=== PATIENT | male | born 1950 | race Two or more races ===

== ENCOUNTER 2023-07-10 12:49 | Inpatient (IN) | payer OTHER ==
[2023-07-10 15:31] LABS: BASO % 0.6 % (0-2.0); EOS % 2.7 % (0-4.5); HEMATOCRIT 34.6 % (35.4-49); HEMOGLOBIN 11.6 GM/dL (11.7-16.9); LYMPH % 14.7 % (8-40); MCH 29.2 pg (25.7-33.7); MCHC 33.4 g/dl (32.0-35.9); MEAN CELL VOLUME 87.3 fl (80-96); MEAN PLT VOLUME 8.4 fl (7.5-11.1); MONO % 5.9 % (3.8-10.2); NEUT % 76.1 % (42.8-82.8); PLATELET COUNT 279 10^3/uL (134-434); RBC 3.96 M/mm3 (4.00-5.60); RDW 14.9 % (11.9-15.9)
[2023-07-10 15:41] LABS: INR 1.01 (0.83-1.09); PROTHROMBIN TIME (PATIENT) 11.7 SEC (9.7-13.0)
[2023-07-10 15:44] LABS: ACTIVATED PTT 26.7 SECONDS (25.2-36.5)
[2023-07-10 16:01] LABS: POTASSIUM 5.2 mmol/L (3.5-5.1)
[2023-07-10 16:04] LABS: CALCIUM 9.8 mg/dL (8.5-10.1)
[2023-07-10 16:06] LABS: BLOOD UREA NITROGEN 31.8 mg/dL (7-18); MAGNESIUM 1.6 mg/dL (1.8-2.4)
[2023-07-10 16:09] LABS: BILIRUBIN,TOTAL 0.4 mg/dL (0.2-1); TOT PROT 8.1 g/dl (6.4-8.2)
[2023-07-10 16:16] LABS: LACTIC ACID 2.2 mmol/L (0.4-2.0)
[2023-07-10] MEDS: LACTATED RINGERS SOLUTION 1000 ML INFUS.BAG IV ONE (17:57)
[2023-07-10 18:35] LABS: PH,URINE 5.5 (5.0-8.0); URINE APPEARANCE CLEAR; URINE BILIRUBIN NEGATIVE (NEGATIVE); URINE COLOR YELLOW; URINE GLUCOSE (UA) NEGATIVE (NEGATIVE); URINE KETONE NEGATIVE (NEGATIVE); URINE LEUK ESTERASE NEGATIVE (NEGATIVE); URINE NITRITE NEGATIVE (NEGATIVE); URINE PROTEIN NEGATIVE (NEGATIVE); URINE UROBILINOGEN 0.2 mg/dL (0.2-1.0)
[2023-07-10] MEDS ORDERED: ACETAMINOPHEN 1000 MG/100 ML BAG IVPB PRN (20:37)
[2023-07-10] MEDS ORDERED: MAGNESIUM SULFATE IN WATER 2 GM/50 ML IVPB IVPB ONE (21:53)
[2023-07-10] MEDS: MAGNESIUM SULFATE IN WATER 2 GM/50 ML IVPB IVPB ONE (22:12)
[2023-07-10] MEDS: INSULIN ASPART SLIDING SCALE (NOVOLOG) 1 VIAL SQ SCH (22:41)
[2023-07-11] MEDS: SODIUM CHLORIDE 1,000 ML IV SCH (02:05)
[2023-07-11 02:57] VITALS: BMI 19.7
[2023-07-11] MEDS ORDERED: BISMUTH SUBSALICYLATE 524 MG/30 ML PO PRN (06:13)
[2023-07-11] MEDS ORDERED: MAG HYDROX/AL HYDROX/SIMETH 30 ML UNIT-DOSE CUP PO PRN (07:07)
[2023-07-11 08:07] LABS: BASO % 1.1 % (0-2.0); EOS % 4.8 % (0-4.5); HEMATOCRIT 28.4 % (35.4-49); HEMOGLOBIN 9.7 GM/dL (11.7-16.9); LYMPH % 23.3 % (8-40); MCH 29.8 pg (25.7-33.7); MCHC 34.3 g/dl (32.0-35.9); MEAN CELL VOLUME 86.8 fl (80-96); MEAN PLT VOLUME 9.1 fl (7.5-11.1); MONO % 6.3 % (3.8-10.2); NEUT % 64.5 % (42.8-82.8); PLATELET COUNT 211 10^3/uL (134-434); RBC 3.27 M/mm3 (4.00-5.60); RDW 14.9 % (11.9-15.9); WHITE BLOOD COUNT 8.2 K/mm3 (4.0-10.0)
[2023-07-11 08:23] LABS: POTASSIUM 4.6 mmol/L (3.5-5.1)
[2023-07-11 08:28] LABS: ALBUMIN 3.3 g/dl (3.4-5.0); BLOOD UREA NITROGEN 24.7 mg/dL (7-18); CALCIUM 9.3 mg/dL (8.5-10.1); MAGNESIUM 2.1 mg/dL (1.8-2.4)
[2023-07-11 08:30] LABS: CREATININE 0.6 mg/dL (0.55-1.3)
[2023-07-11 08:32] LABS: BILIRUBIN,TOTAL 0.5 mg/dL (0.2-1); PHOSPHOROUS 3.3 mg/dL (2.5-4.9)
[2023-07-11 08:33] LABS: TOT PROT 6.6 g/dl (6.4-8.2)
[2023-07-11] MEDS: TAMSULOSIN HCL 0.4 MG CAP PO SCH (10:13)
[2023-07-11] MEDS: LACTOBACILLUS ACIDOPHILUS 1 TABLET PO SCH (10:13)
[2023-07-11] MEDS: MULTIVITAMINS (DAILY MVI) TABLET (FP) PO SCH (10:13)
[2023-07-11] MEDS: LISINOPRIL 20 MG TABLET PO SCH (16:32)
[2023-07-11] MEDS: ATORVASTATIN CA 80 MG TABLET (FP) PO SCH (21:50)
[2023-07-12] MEDS ORDERED: ACETAMINOPHEN 325 MG TABLET (FP) PO PRN (20:30)
[2023-07-13 08:16] LABS: POTASSIUM 4.2 mmol/L (3.5-5.1)
[2023-07-13 08:22] LABS: BLOOD UREA NITROGEN 10.3 mg/dL (7-18); CALCIUM 8.7 mg/dL (8.5-10.1)
[2023-07-13 08:23] LABS: ALBUMIN 3.1 g/dl (3.4-5.0)
[2023-07-13 08:25] LABS: CREATININE 0.8 mg/dL (0.55-1.3)
[2023-07-13 08:27] LABS: BILIRUBIN,TOTAL 0.8 mg/dL (0.2-1); TOT PROT 6.5 g/dl (6.4-8.2)
[2023-07-13 08:53] LABS: HEMATOCRIT 27.8 % (35.4-49); HEMOGLOBIN 9.4 GM/dL (11.7-16.9); MCH 29.3 pg (25.7-33.7); MCHC 33.9 g/dl (32.0-35.9); MEAN CELL VOLUME 86.2 fl (80-96); PLATELET COUNT 201 10^3/uL (134-434); RBC 3.22 M/mm3 (4.00-5.60); RDW 14.7 % (11.9-15.9); WHITE BLOOD COUNT 15.4 K/mm3 (4.0-10.0)
[2023-07-13] MEDS: MULTIVIT-MINERALS ORAL LIQUID PO SCH (10:35)
[2023-07-14 09:23] VITALS: RESP 18
[2023-07-14 11:25] LABS: EOS % 1.9 % (0-4.5); HEMATOCRIT 27.9 % (35.4-49); HEMOGLOBIN 9.4 GM/dL (11.7-16.9); LYMPH % 13.4 % (8-40); MCH 29.3 pg (25.7-33.7); MCHC 33.6 g/dl (32.0-35.9); MEAN CELL VOLUME 87.1 fl (80-96); MEAN PLT VOLUME 8.4 fl (7.5-11.1); NEUT % 77.7 % (42.8-82.8); PLATELET COUNT 220 10^3/uL (134-434); RDW 14.9 % (11.9-15.9); WHITE BLOOD COUNT 14.2 K/mm3 (4.0-10.0)
[2023-07-14 11:38] LABS: POTASSIUM 4.2 mmol/L (3.5-5.1)
[2023-07-14 11:40] LABS: ALBUMIN 2.9 g/dl (3.4-5.0); CALCIUM 8.8 mg/dL (8.5-10.1)
[2023-07-14 11:41] LABS: BLOOD UREA NITROGEN 18.6 mg/dL (7-18)
[2023-07-14 11:43] LABS: CREATININE 1.2 mg/dL (0.55-1.3)
[2023-07-14 11:45] LABS: BILIRUBIN,TOTAL 0.5 mg/dL (0.2-1); TOT PROT 6.5 g/dl (6.4-8.2)
[2023-07-14] MEDS ORDERED: INSULIN (NOVOLOG) ASPART 100 UNITS/ML 10ML VIAL ONE (22:05)
[2023-07-15 08:15] VITALS: BP 116/78
[2023-07-15 08:17] LABS: HEMATOCRIT 26.9 % (35.4-49); LYMPH % 20.8 % (8-40); MCH 29.3 pg (25.7-33.7); MCHC 33.5 g/dl (32.0-35.9); MEAN CELL VOLUME 87.5 fl (80-96); MONO % 6.8 % (3.8-10.2); NEUT % 66.4 % (42.8-82.8); PLATELET COUNT 220 10^3/uL (134-434); RBC 3.08 M/mm3 (4.00-5.60); RDW 14.8 % (11.9-15.9)
[2023-07-15 08:52] LABS: POTASSIUM 4.5 mmol/L (3.5-5.1)
[2023-07-15 09:02] LABS: ALBUMIN 2.6 g/dl (3.4-5.0)
[2023-07-15 09:04] LABS: BILIRUBIN,TOTAL 0.4 mg/dL (0.2-1); BLOOD UREA NITROGEN 22.8 mg/dL (7-18); CALCIUM 8.2 mg/dL (8.5-10.1); CREATININE 0.9 mg/dL (0.55-1.3); TOT PROT 5.9 g/dl (6.4-8.2)
[2023-07-15 09:39] VITALS: PULSE 83; TEMP 98.1
== END 2023-07-15 15:22 | DRG 65 ==
LOC: JER 12:49 → JERBED 17:55 → J4W 23:32 → OBSVTOIN 07-14 09:43 → J4W 07-14 11:18
PROVIDERS: ADMIT Internal Medicine; ATTEND Family Medicine
DX: I63.89 Other cerebral infarction (principal); I69.354 Hemiplegia and hemiparesis following cerebral infarction affecting left non-dominant side; R29.705 NIHSS score 5; E78.5 Hyperlipidemia, unspecified; K21.9 Gastro-esophageal reflux disease without esophagitis; G30.9 Alzheimer's disease, unspecified; F02.80 Dementia in other diseases classified elsewhere, unspecified severity, without behavioral disturbance, psychotic disturbance, mood disturbance, and anxiety; I12.9 Hypertensive chronic kidney disease with stage 1 through stage 4 chronic kidney disease, or unspecified chronic kidney disease; E11.22 Type 2 diabetes mellitus with diabetic chronic kidney disease; N18.9 Chronic kidney disease, unspecified; E87.5 Hyperkalemia; E83.42 Hypomagnesemia; E86.0 Dehydration; D64.9 Anemia, unspecified; R50.9 Fever, unspecified
CPT/HCPCS: 0241U-QW; 36415; 70450-TC; 71045-TC-FY; 72125-TC; 80048; 80053; 81003; 82607; 82962; 83605; 83735; 84100; 84443; 84484; 85025; 85027; 85610; 85730; 86780; 86850; 86900; 86901; 87040; 87086; 87324; 87449; 93005; 93010; 97116-GP; 97162-GP; 99285-25; G0378

== ENCOUNTER 2023-08-21 16:18 | Inpatient (IN) | payer OTHER ==
[2023-08-21 17:05] LABS: BASO % 1.2 % (0-2.0); EOS % 0.8 % (0-4.5); HEMATOCRIT 32.1 % (35.4-49); HEMOGLOBIN 10.9 GM/dL (11.7-16.9); LYMPH % 15.8 % (8-40); MCH 30.3 pg (25.7-33.7); MCHC 34.1 g/dl (32.0-35.9); MEAN CELL VOLUME 88.9 fl (80-96); MEAN PLT VOLUME 7.7 fl (7.5-11.1); MONO % 7.2 % (3.8-10.2); PLATELET COUNT 275 10^3/uL (134-434); RBC 3.61 M/mm3 (4.00-5.60); RDW 16.3 % (11.9-15.9); WHITE BLOOD COUNT 7.3 K/mm3 (4.0-10.0)
[2023-08-21 17:12] LABS: INR 0.98 (0.83-1.09); PROTHROMBIN TIME (PATIENT) 11.1 SEC (9.7-13.0)
[2023-08-21 17:15] LABS: ACTIVATED PTT 28.6 SECONDS (25.2-36.5)
[2023-08-21 17:31] LABS: POTASSIUM 3.7 mmol/L (3.5-5.1)
[2023-08-21 17:33] LABS: CALCIUM 9.4 mg/dL (8.5-10.1)
[2023-08-21 17:34] LABS: ALBUMIN 3.7 g/dl (3.4-5.0)
[2023-08-21 17:35] LABS: BLOOD UREA NITROGEN 8.9 mg/dL (7-18)
[2023-08-21 17:37] LABS: CREATININE 0.9 mg/dL (0.55-1.3)
[2023-08-21 17:38] LABS: TOT PROT 7.3 g/dl (6.4-8.2)
[2023-08-21 17:41] LABS: BILIRUBIN,TOTAL 0.5 mg/dL (0.2-1)
[2023-08-21 17:43] LABS: EPI CELLS 4 /uL (0-25.1); HYALINE CASTS 0 /uL (0-3.1); PH,URINE 5.5 (5.0-8.0); URINE APPEARANCE CLEAR; URINE BILIRUBIN 1+ (NEGATIVE); URINE COLOR DK YELLOW; URINE GLUCOSE (UA) NEGATIVE (NEGATIVE); URINE KETONE NEGATIVE (NEGATIVE); URINE LEUK ESTERASE NEGATIVE (NEGATIVE); URINE NITRITE POSITIVE (NEGATIVE); URINE PROTEIN TRACE (NEGATIVE); URINE RBC 15 /uL (0-23.9); URINE WBC 7 /uL (0-25.8)
[2023-08-21] MEDS ORDERED: CEFTRIAXONE 1 GM/50 ML BAG ONE (18:05)
[2023-08-21] MEDS: CEFTRIAXONE 1 GM in DEXTROSE 5%-WATER - 100 ML IVPB ONE (18:15)
[2023-08-21] MEDS ORDERED: ASPIRIN 81 MG CHEWABLE TABLETS ONE (22:21)
[2023-08-21] MEDS: ASPIRIN 81 MG CHEWABLE TABLETS PO ONE (22:36)
[2023-08-21] MEDS: INSULIN ASPART SLIDING SCALE (NOVOLOG) 1 VIAL SQ SCH (23:01)
[2023-08-21 23:26] LABS: URINE BACTERIA FEW /uL (0-1359)
[2023-08-22] MEDS: ACETAMINOPHEN 1000 MG/100 ML BAG IVPB PRN (00:42)
[2023-08-22 06:41] LABS: BASO % 3.7 % (0-2.0); EOS % 6.9 % (0-4.5); HEMATOCRIT 29.3 % (35.4-49); HEMOGLOBIN 9.7 GM/dL (11.7-16.9); LYMPH % 32.2 % (8-40); MCH 29.8 pg (25.7-33.7); MCHC 33.3 g/dl (32.0-35.9); MEAN CELL VOLUME 89.7 fl (80-96); MEAN PLT VOLUME 7.9 fl (7.5-11.1); MONO % 7.9 % (3.8-10.2); NEUT % 49.3 % (42.8-82.8); PLATELET COUNT 260 10^3/uL (134-434); RBC 3.27 M/mm3 (4.00-5.60); RDW 16.8 % (11.9-15.9); WHITE BLOOD COUNT 6.6 K/mm3 (4.0-10.0)
[2023-08-22 07:21] LABS: POTASSIUM 3.2 mmol/L (3.5-5.1)
[2023-08-22 07:25] LABS: CALCIUM 8.6 mg/dL (8.5-10.1)
[2023-08-22 07:26] LABS: BLOOD UREA NITROGEN 8.4 mg/dL (7-18); MAGNESIUM 1.8 mg/dL (1.8-2.4)
[2023-08-22 07:29] LABS: CREATININE 0.7 mg/dL (0.55-1.3); PHOSPHOROUS 3.4 mg/dL (2.5-4.9)
[2023-08-22] MEDS: ASPIRIN COATED 81 MG TABLET.EC PO SCH (09:59)
[2023-08-22] MEDS: TAMSULOSIN HCL 0.4 MG CAP PO SCH (09:59)
[2023-08-22] MEDS: LISINOPRIL 20 MG TABLET PO SCH (09:59)
[2023-08-22] MEDS: LACTOBACILLUS ACIDOPHILUS 1 TABLET PO SCH (09:59)
[2023-08-22] MEDS: POTASSIUM CHLORIDE ORAL LIQUID 20 MEQ/15 ML PO ONE (10:16)
[2023-08-22] MEDS: HEPARIN NA (PORCINE) 5,000 UNITS/ML 1ML VIAL SQ SCH (10:54)
[2023-08-22] MEDS: metoPROLOL SUCCINATE 25 MG TAB.SR.24H (FP) PO SCH (10:54)
[2023-08-22] MEDS: INSULIN ASPART SLIDING SCALE (NOVOLOG) 1 VIAL SQ SCH (10:58)
[2023-08-22] MEDS: ATORVASTATIN CA 80 MG TABLET (FP) PO SCH (21:06)
[2023-08-23 08:51] LABS: BASO % 1.5 % (0-2.0); HEMATOCRIT 31.9 % (35.4-49); HEMOGLOBIN 10.5 GM/dL (11.7-16.9); LYMPH % 38.9 % (8-40); MCH 29.6 pg (25.7-33.7); MCHC 32.8 g/dl (32.0-35.9); MEAN CELL VOLUME 90.1 fl (80-96); MEAN PLT VOLUME 8.4 fl (7.5-11.1); MONO % 7.8 % (3.8-10.2); NEUT % 44.8 % (42.8-82.8); PLATELET COUNT 278 10^3/uL (134-434); RBC 3.54 M/mm3 (4.00-5.60); RDW 16.3 % (11.9-15.9); WHITE BLOOD COUNT 7.1 K/mm3 (4.0-10.0)
[2023-08-23 09:06] LABS: POTASSIUM 4.1 mmol/L (3.5-5.1)
[2023-08-23 09:08] LABS: CALCIUM 8.9 mg/dL (8.5-10.1)
[2023-08-23 09:09] LABS: ALBUMIN 3.2 g/dl (3.4-5.0)
[2023-08-23 09:12] LABS: CREATININE 0.7 mg/dL (0.55-1.3)
[2023-08-23 09:14] LABS: BILIRUBIN,TOTAL 0.6 mg/dL (0.2-1); TOT PROT 6.6 g/dl (6.4-8.2)
[2023-08-23] MEDS: ACETAMINOPHEN 325 MG TABLET (FP) PO PRN (09:21)
[2023-08-23 13:28] VITALS: BMI 19.8
[2023-08-25 01:03] VITALS: RESP 18
[2023-08-25 19:33] VITALS: BP 135/72; PULSE 61; TEMP 97.7
== END 2023-08-25 21:14 | DRG 64 ==
LOC: JER 16:18 → OBSVTOIN 20:28 → JERBED 20:28 → J4S 23:00
PROVIDERS: ADMIT Internal Medicine; ATTEND Family Medicine
DX: I63.9 Cerebral infarction, unspecified (principal); G93.41 Metabolic encephalopathy; G81.94 Hemiplegia, unspecified affecting left nondominant side; E11.22 Type 2 diabetes mellitus with diabetic chronic kidney disease; I12.9 Hypertensive chronic kidney disease with stage 1 through stage 4 chronic kidney disease, or unspecified chronic kidney disease; G30.9 Alzheimer's disease, unspecified; F03.90 Unspecified dementia, unspecified severity, without behavioral disturbance, psychotic disturbance, mood disturbance, and anxiety; D64.9 Anemia, unspecified; N18.9 Chronic kidney disease, unspecified; E78.5 Hyperlipidemia, unspecified
CPT/HCPCS: 36415; 70450-TC; 70551-TC; 71045-TC-FY; 72125-TC; 72170-TC-FY; 80048; 80053; 80061; 81003; 82550; 82728; 82962; 83036; 83540; 83550; 83735; 84100; 84484; 85025; 85610; 85730; 86850; 86900; 86901; 87086; 93005; 93010; 93306-TC; 93880-TC; 97116-GP; 97161-GP; 99285-25; J0131; J1644